=== PATIENT | male | born 1985 | race Two or more races ===

== ENCOUNTER 2021-10-09 14:38 | Emergency (ER) | payer MEDICAID, OTHER ==
[~2021-10-09] VITALS: Ht 175.3 cm; Wt 145.1 kg
[2021-10-09] MEDS ORDERED: IBU600T PO (20:07)
[2021-10-09 21:10] VITALS: BP 121/76
== END 2021-10-09 20:07 | disposition home or self-care (01) ==
LOC: ER 14:38
DX: L72.0 Epidermal cyst (principal); E11.9 Type 2 diabetes mellitus without complications
CPT/HCPCS: 76870